=== PATIENT | male | born 1965 | race Caucasian/White ===

== ENCOUNTER 2018-05-27 11:08 | Emergency (ER) | payer OTHER ==
[~2018-05-27] VITALS: Ht 180.3 cm; Wt 93.0 kg
[2018-05-27 11:10] VITALS: BP 165/88
--- NOTE | 2018-05-27 11:11 | NUR ---
patient ambulated to rm 2 with steady gait
--- NOTE | 2018-05-27 11:20 | NUR ---
52m bib self with c/o generalized weakness since 0800, upon waking up. Patient also reports of bl hands tingling/numbness yesterday but denies current tingling/numbness. Patient also reports of left eye swelling. Mild swelling noted to left eyes. Patient denies any itchness. Patient denies any cp, sob, or any pain. Patient also denies any recent fevers, chills, or n/v/d. Pt is aox4 to person, place, situation, and time. Skin is warm/dry/appriopriate for age. RR are even and unlabored. Patient changed into gown and to cardiac, bp, pulse, and pulse ox monitoring. All needs met at this time. VSS. NAD. Will continue to monitor.
--- NOTE | 2018-05-27 12:18 | NUR ---
lab by bedside
[2018-05-27 13:00] LABS: BASOPHILS % (AUTO) 0.4 % (0.0-2.0); EOSINOPHILS # (AUTO) 0.1 K/uL (0-0.4); EOSINOPHILS % (AUTO) 0.8 % (0.0-4.0); HEMATOCRIT 49.6 % (36-52); HEMOGLOBIN 16.6 g/dL (12.0-18.0); LYMPHOCYTES # (AUTO) 1.1 K/uL (2.0-11.5); MEAN CORPUSCULAR HEMOGLOBIN 32 pg (27-31); MEAN CORPUSCULAR HGB CONC 34 g/dL (33-37); MONOCYTES # (AUTO) 0.5 K/uL (0.8-1.0); MONOCYTES % (AUTO) 3.8 % (1.7-9.3); NEUTROPHILS # (AUTO) 10.6 K/uL (1.8-7.7); PLATELET COUNT (AUTO) 237 K/uL (140-450); RED BLOOD CELL COUNT(AUTO) 5.23 MIL/uL (4.20-6.10); RED CELL DISTRIBUTION WIDTH 13.7 % (11.6-13.7); WHITE BLOOD COUNT (AUTO) 12.3 K/uL (4.8-10.8)
[2018-05-27 13:12] LABS: ANION GAP 8.8 (8-16); CARBON DIOXIDE 30.4 mmol/L (21-32); POTASSIUM 4.2 mmol/L (3.5-5.1)
[2018-05-27 13:14] LABS: PROTHROMBIN TIME 9.4 secs (10.8-13.4)
[2018-05-27 13:20] LABS: ALBUMIN 3.5 g/dL (3.4-5.0); TOTAL BILIRUBIN 0.5 mg/dL (0.0-1.0)
[2018-05-27 14:40] VITALS: BP 121/88
--- NOTE | 2018-05-27 14:40 | NUR ---
Patient discharged with v/s stable. Written and verbal after care instructions given and explained. Patient alert, oriented and verbalized understanding of instructions. Ambulatory with steady gait. All questions addressed prior to discharge. ID band removed. Patient advised to follow up with PMD. Rx of ASPIRIN given. Patient educated on indication of medication including possible reaction and side effects. Opportunity to ask questions provided and answered.
== END 2018-05-27 14:40 | disposition home or self-care (01) ==
LOC: MED 11:08
DX: R07.89 Other chest pain (principal); R53.1 Weakness; H57.12 Ocular pain, left eye; R11.2 Nausea with vomiting, unspecified; F17.200 Nicotine dependence, unspecified, uncomplicated
CPT/HCPCS: 36415; 71045; 80053; 83880; 84484; 85025; 85610; 85730; 93005; 99285; Q0092